=== PATIENT | female | born 1960 | race Caucasian/White ===

== ENCOUNTER 2019-12-19 13:20 | Emergency (ER) | payer OTHER, MEDICAID ==
[~2019-12-19] VITALS: Ht 157.5 cm; Wt 109.1 kg
[~2019-12-19 13:20] MED LIST: ACTOS 30 MG TAB30 MG PO; ACYCLOVIR 800800 M1 PO; ADULT LOW DOSE81 MG PO; AMARYL4 MG PO; AZITHROMYCIN 2250 MG PO; BENADRYL25 MG PO; DIOVAN HCT 80-1 EACH PO; FERRO-TIME325 MG; FLUOXETINE HCL20 M1 PO; GLUCOPHAGE XR750 MG PO; GLUCOPHAGE500 MG PO; LANTUS SOL100 UNIT/1 SUBQ; LANTUS SUBQ; LEVEMIR; LEVOTHYROXINE0.05 MG NG; MOBIC15 MG PO; NITROGLYCERIN0.4 MG; NOVOLIN N100 UNIT/3 SQ; NOVOLOG100 UNIT/1 SQ; PREDNISONE 10 M10 MG PO; PRILOSEC 20 MG20 MG PO; PROTONIX 20 MG20 MG PO; PROVERA10 MG PO; PROZAC40 MG PO; ROBAXIN 750 MG750 M1 PO; TRAMADOL 50 MG50 MG PO; ULTRAM 50MG TAB50 MG
[2019-12-19 13:59] LABS: ABSOLUTE EOSINOPHILS 0.1 thou/uL (0.0-0.7); ABSOLUTE LYMPHOCYTES 1.2 thou/uL (0.8-5.3); ABSOLUTE MONOCYTES 0.5 thou/uL (0.0-1.2); ABSOLUTE NEUTROPHILS 7.3 thou/uL (1.6-8.1); BASOPHILS 0.5 %; EOSINOPHILS 0.8 %; HEMATOCRIT 37.4 % (37.0-47.0); HEMOGLOBIN 12.8 gm/dL (12.0-15.0); LYMPHOCYTES 13.3 %; MCH 29.2 pg (26.0-34.0); MCHC 34.1 g/dL (28.0-37.0); MCV 85.6 fL (80.0-100.0); MONOCYTES 5.2 %; NUCLEATED RBCS 0 /100WBC; PLATELET COUNT* 263 thou/uL (150-400); POLYS 80.2 %; RBC 4.37 mil/uL (4.20-5.00); RDW-CV 13.7 % (10.5-14.5); WBC 9.2 thou/uL (4.0-11.0)
[2019-12-19 14:05] LABS: CALCIUM 8.1 mg/dL (8.5-10.1); CREATININE 0.8 mg/dL (0.6-1.3)
[2019-12-19 14:10] LABS: TOTAL BILIRUBIN 0.4 mg/dL (<0.1-1.0); TOTAL PROTEIN 6.9 g/dL (6.4-8.2)
[2019-12-19 14:20] LABS: ACETAMINOPHEN 30 ug/mL (10-30); ALCOHOL < 10 mg/dL (<10); SALICYLATE < 2.8 mg/dL (2.8-20.0)
[2019-12-19 14:25] LABS: AMP/METHAMP Negative (Negative); BARBITURATES Negative (Negative); BENZODIAZEPINES Negative (Negative); COCAINE Negative (Negative); METHADONE Negative (Negative); OPIATES POSITIVE (Negative); PCP Negative (Negative); THC Negative (Negative)
[2019-12-19 17:05] LABS: SGOT 11 U/L (15-37); SGPT 14 U/L (30-65)
--- NOTE | 2019-12-20 14:18 | EKG ---
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[facility] : 1960 Requested By: Matheus Francis Order Number: [id number] MD: Jamison Quiñonez Measurements Intervals [place] Rate: 92 P: 37 WV: 148 QRS: 2 QRSD: 89 T: 28 QT: 360 QTc: 446 Interpretive Statements Sinus rhythm Compared to ECG 12/15/2016 10:09:55 No significant changes Electronically Signed On 12-20-2019 14:18:25 CDT by Jamison Quiñonez [email or web address] <ELECTRONICALLY SIGNED> By: Lupe Quiñonez MD, [facility] 12/20/19 1418 1357 1357 Lupe Quiñonez MD, [facility] /EPI
[2019-12-20 18:00] VITALS: BP 131/68
== END 2019-12-20 18:02 ==
LOC: M.ERS 13:20
PROVIDERS: Nurse Practitioner Psychiatric/Mental Health
DX: T39.1X2A Poisoning by 4-Aminophenol derivatives, intentional self-harm, initial encounter (principal); Z20.828 Contact with and (suspected) exposure to other viral communicable diseases; E11.9 Type 2 diabetes mellitus without complications; E03.9 Hypothyroidism, unspecified; Z88.5 Allergy status to narcotic agent; Z88.2 Allergy status to sulfonamides; Z79.4 Long term (current) use of insulin; Y92.89 Other specified places as the place of occurrence of the external cause